=== PATIENT | female | born 1950 | race Caucasian/White ===

== ENCOUNTER 2024-07-13 11:29 | Emergency (ER) | payer OTHER, BC ==
[2024-07-13] MEDS ORDERED: LIDOCAINE 5% TOPICAL PATCH ONE (11:59)
[2024-07-13] MEDS ORDERED: KETOROLAC TROMETHAMINE 30 MG/1 ML VIAL ONE (11:59)
[2024-07-13] MEDS: KETOROLAC TROMETHAMINE 30 MG/1 ML VIAL IM ONE (12:07)
[2024-07-13 12:22] VITALS: BP 98/80; PULSE 71; RESP 16; TEMP 98.8; BMI 37.9
[2024-07-13] MEDS: LIDOCAINE 5% TOPICAL PATCH TP ONE (13:05)
[2024-07-13] MEDS ORDERED: LIDOCAINE PATCH REMOVAL MC SCH (22:00)
== END 2024-07-13 14:30 | disposition home or self-care (01) ==
LOC: FER 11:29
PROC: 3E0233Z Introduction of Anti-inflammatory into Muscle, Percutaneous Approach (ICD-10-PCS; principal; 2024-07-13)
DX: M51.36 Other intervertebral disc degeneration, lumbar region (principal); M54.50 Low back pain, unspecified
CPT/HCPCS: 72131-TC; 99284-25